=== PATIENT | female | born 1980 | race Caucasian/White ===

== ENCOUNTER 2018-12-19 22:42 | Emergency (ER) | payer OTHER ==
[~2018-12-19] VITALS: Ht 162.6 cm; Wt 65.8 kg
--- NOTE | 2018-12-19 22:42 | NUR ---
TONJA TY, PREBOOK. TAKEN TO CHAIR E
[2018-12-19 22:44] VITALS: BP 122/65
--- NOTE | 2018-12-19 22:46 | NUR ---
PT BIB [facility] [employer] FOR MEDICAL CLEARANCE TO PREBOOK. ON ARRIVAL PT [facility] 15, A/OX4 RESPIS E/U, LUNGS CLEAR BILAT THROUGHOUT, DENIES CP/SOB. DENIES CP AT THIS TIME. NO OTHER COMPLAINTS.
[2018-12-19 23:00] VITALS: BP 122/65
--- NOTE | 2018-12-19 23:00 | NUR ---
Patient discharged with v/s stable. Written and verbal after care instructions given and explained. Patient verbalized understanding. Police with in custody. All questions addressed prior to discharge. Advised to follow up with PMD.
== END 2018-12-19 23:00 ==
LOC: MED 22:42
DX: Z02.89 Encounter for other administrative examinations (principal); J45.909 Unspecified asthma, uncomplicated; F31.9 Bipolar disorder, unspecified; Z88.6 Allergy status to analgesic agent
CPT/HCPCS: 99283